=== PATIENT | male | born 1990 | race Caucasian/White ===

== ENCOUNTER 2021-04-14 22:12 | Emergency (ER) | payer MEDICAID ==
[~2021-04-14] VITALS: Ht 180.3 cm; Wt 77.1 kg
[2021-04-14 22:15] VITALS: BP 110/82
--- NOTE | 2021-04-14 22:15 | NUR ---
to bed ambulatory
[2021-04-14] MEDS ORDERED: methylPREDNISolone SS 125 MG/2 ML VIAL IM ONE (22:20)
[2021-04-14] MEDS ORDERED: ALBUTEROL SULFATE/IPRATROPIU 3 ML SOL IH ONE (22:20)
--- NOTE | 2021-04-14 22:30 | NUR ---
PT BIB SELF FOR C/O SOB, S/P HEROIN USE APPROX 12 HOURS AGO. PT REPORTS EVERY TIME HE USES HEROIN HE HAS SOB FOLLOWING, REQUIRING HIM TO TAKE STEROIDS, WHICH BRINGS RELIEF. SHALLOW AND RAPID RESPIRATIONS NOTED. PT ABLE TO SPEAK IN FULL SENTENCES WITHOUT DIFFICULTY. 89% O2 ON R.A. NOTED. MOTHER AT BEDSIDE. MED HX: HEROIN USE ALLERGIES: NKA
--- NOTE | 2021-04-14 22:30 | NUR ---
GABRIEL COLLECTED AND WALKED TO LAB BY ALEXANDRA CHRISTOPHER.
--- NOTE | 2021-04-14 22:33 | NUR ---
XRAY AT BEDSIDE.
--- NOTE | 2021-04-14 22:34 | NUR ---
RT AT BEDSIDE.
--- NOTE | 2021-04-14 22:53 | NUR ---
ERMD AT BEDSIDE.
[2021-04-14] MEDS ORDERED: PRED20TA5 PO (23:10)
[2021-04-14] MEDS ORDERED: ALBU0.0912 IH (23:10)
--- NOTE | 2021-04-14 23:15 | NUR ---
BILATERAL WHEEZING IMPROVED UPON AUSCULTATION. PT REPORTS RELIEF, STATING "I FEEL A LOT BETTER." PT REPORTS BASELINE 02 90% ON ROOM AIR AT HOME, WHEN MONITORED. PT DENIES SOB. RESPIRATIONS EVEN AND UNLABORED.
--- NOTE | 2021-04-14 23:35 | NUR ---
Patient discharged with v/s stable. Written and verbal after care instructions given and explained. Patient alert, oriented and verbalized understanding of instructions. Ambulatory with steady gait. All questions addressed prior to discharge. ID band removed. Patient advised to follow up with PMD. Rx of PROVENTIL HFA MDI AND PREDNISONE given. Patient educated on indication of medication including possible reaction and side effects. Opportunity to ask questions provided and answered.
[2021-04-16] MEDS ORDERED: AZIT250T4 PO (06:48)
[2021-04-16] MEDS ORDERED: AMOX-1000 PO (06:48)
== END 2021-04-14 23:35 | disposition home or self-care (01) ==
LOC: MED 22:12
DX: J45.901 Unspecified asthma with (acute) exacerbation (principal); Z20.822 Contact with and (suspected) exposure to COVID-19; J18.9 Pneumonia, unspecified organism; Z79.899 Other long term (current) drug therapy
CPT/HCPCS: 71045; 87426; 93005; 94640; 96372; 99285; J2930

== ENCOUNTER 2021-06-08 19:02 | Emergency (ER) | payer MEDICAID ==
[~2021-06-08] VITALS: Ht 180.3 cm; Wt 72.6 kg
[~2021-06-08 19:02] MED LIST: ALBU0.0912 IH; AMOX-1000 PO; AZIT250T4 PO; PRED20TA5 PO
[2021-06-08 19:14] VITALS: BP 126/83
--- NOTE | 2021-06-08 19:16 | NUR ---
TO LOBBY A/W BED AMBULATORY
--- NOTE | 2021-06-08 20:45 | NUR ---
TO ER BED 2
--- NOTE | 2021-06-08 21:00 | NUR ---
RECEIVED IN BED 2 WITH C/O SOB AND COUGH FOR A WEEK. RESPIRATIONS NOW ARE REGULAR AND UNLABORED
[2021-06-08] MEDS ORDERED: ALBU0.0912 INH (21:51)
[2021-06-08] MEDS ORDERED: PRED20TA5 PO (21:51)
[2021-06-08] MEDS: predniSONE 20 MG TAB PO ONE (22:03)
[2021-06-08 22:10] VITALS: BP 126/83
--- NOTE | 2021-06-08 22:10 | NUR ---
Patient discharged with v/s stable. Written and verbal after care instructions given and explained. Patient alert, oriented and verbalized understanding of instructions. Ambulatory with steady gait. All questions addressed prior to discharge. ID band removed. Patient advised to follow up with PMD. Rx of PROVENTIL, PREDNISONE given. Patient educated on indication of medication including possible reaction and side effects. Opportunity to ask questions provided and answered.
== END 2021-06-08 22:10 | disposition home or self-care (01) ==
LOC: MED 19:02
DX: J45.901 Unspecified asthma with (acute) exacerbation (principal); Z79.899 Other long term (current) drug therapy
CPT/HCPCS: 71045; 93005; 99283; J7512

== ENCOUNTER 2021-10-16 23:19 | Emergency (ER) | payer MEDICAID ==
[~2021-10-16 23:19] MED LIST changes: +ALBU0.0912 INH
--- NOTE | 2021-10-16 23:40 | NUR ---
CALL TO TRIAGE NO RESPONSE PATIENT LEFT WITHOUT BEING SEEN BY DR. KAMARA. NO FURTHER CARE PROVIDED FOR PATIENT.
--- NOTE | 2021-10-16 23:46 | NUR ---
PER CANDICE PT LEFT WITHOUT BEING SEEN [id number]
--- NOTE | 2021-10-16 23:50 | NUR ---
CALLED FOR THE SECOND TIME , NO RESPONSE
--- NOTE | 2021-10-16 23:58 | NUR ---
CALLED FOR THE THIRD TIME , NO RESPONSE
== END 2021-10-16 23:40 | disposition left against medical advice (07) ==
LOC: MED 23:19
DX: Z53.21 Procedure and treatment not carried out due to patient leaving prior to being seen by health care provider (principal)